=== PATIENT | female | born 1960 | race Caucasian/White ===

== ENCOUNTER → 2024-02-04 | Outpatient (CLI) | payer MEDICARE, MEDICAID, SELFPAY ==
--- NOTE | 2024-02-04 12:59 | ART_ITS ---
Reason For Study: CLAUDICATION Procedure A bilateral lower extremity continuous wave Doppler with analog waveform analysis,segmental pressures,and ankle brachial indexes with exercise. PT walked 5 minutes @ 5% incline @ 2.5 MPH. At 3 minutes PT began having bilateral leg pain which continued til stopped. PT continued to finish the 5 minute walk. Left Segmental Pressures Left brachial= 188mmHg. Left posterior tibial artery = 146mmHg. Left dorsalis pedis artery = 138mmHg. The left posterior tibial artery waveforms are triphasic. The left dorsalis pedis waveforms are triphasic. Right Segmental Pressures Right brachial= 196mmHg. Right posterior tibial artery = 184mmHg. Right dorsalis pedis artery = 158mmHg. The right posterior tibial artery waveforms are triphasic. The right dorsalis pedis waveforms are triphasic. Indices The right resting ankle brachial index is 0.94. The right ankle brachial index by the posterior tibial artery is 0.94. The right ankle brachial index by the dorsalis pedis is 0.81. The right ankle brachial index by the posterior tibial artery post exercise is 0.44. The left resting ankle brachial index is 0.74. The left ankle brachial index by the posterior tibial artery is 0.74. The left ankle brachial index by the dorsalis pedis is 0.68. The left posterior tibial artery index post exercise is 0.38. VL/Lower Ext Art Exam w/ Exercise Interpretation Summary Right SYLVESTER 0.94, mild arterial insufficiency. Doppler/PVR waveforms of the right leg mildly diminished Right lower extremity with abnormal response to exercise and post exercise SYLVESTER in the severe category. Left SYLVESTER 0.74, moderate arterial insufficiency. Doppler/PVR waveforms of the le ft leg moderately diminished. Left lower extremity with abnormal response to exercise and post exercise SYLVESTER i n the severe category. Ordering Physician: Carlita Mcfarland Referring Physician: Rosita Sanchez Performed By: Amber Mcdermott RVT, RDCS and Student
== END | disposition home or self-care (01) ==
PROVIDERS: PCP Student in an Organized Health Care Education/Training Program; Referring Provider Physician Assistant; Visit Provider Physician Assistant
DX: I73.9 Peripheral vascular disease, unspecified (principal)
CPT/HCPCS: 93924